=== PATIENT | female | born 1965 | race Caucasian/White ===

== ENCOUNTER 2017-09-25 01:50 | Emergency (ER) | payer MEDICAID, OTHER ==
[~2017-09-25] VITALS: Ht 160 cm; Wt 104.3 kg
[2017-09-25 01:53] VITALS: BP 160/90
[2017-09-25] MEDS ORDERED: KETOROLAC 60 MG/2 ML VIAL IM ONE (02:30)
[2017-09-25 02:52] VITALS: BP 160/90
== END 2017-09-25 02:52 | disposition home or self-care (01) ==
LOC: MED 01:50
DX: R07.89 Other chest pain (principal); R05 Cough; R06.02 Shortness of breath; I10 Essential (primary) hypertension
CPT/HCPCS: 96372; 99283; J1885; 93005